=== PATIENT | female | born 1985 | race Caucasian/White ===

== ENCOUNTER 2024-07-22 20:02 | Emergency (ER) | payer MEDICAID ==
[~2024-07-22] VITALS: Ht 177.8 cm; Wt 91.9 kg
[2024-07-22 20:16] VITALS: TEMP 98.2
[2024-07-22 20:39] LABS: BILIRUBIN,URINE NEGATIVE (Neg); CLARITY,URINE CLEAR (Clear); COLOR,URINE YELLOW (Yellow); GLUCOSE, URINE NEGATIVE (Neg); KETONES,URINE NEGATIVE (Neg); LEUKOCYTE ESTERASE ,URINE NEGATIVE (Neg); NITRITES, URINE NEGATIVE (Neg); OCCULT BLOOD,URINE NEGATIVE (Neg); PH,URINE 7.5 (4.8-8.0); PROTEIN,URINE NEGATIVE (Neg); UROBILINOGEN,URINE 0.2 E.U/dL (0.2-1.0)
[2024-07-22 20:40] LABS: URINE HCG NEGATIVE (NEG)
[2024-07-22 20:43] LABS: UA COLLECTION TYPE CLN CATCH MIDSTREAM
[2024-07-22 20:51] LABS: BASOPHILS # (AUTO) 0.1 X10'3 (0-0.2); BASOPHILS % (AUTO) 0.6 % (0-1); EOSINOPHILS # (AUTO) 0.2 X10'3 (0-0.9); EOSINOPHILS % (AUTO) 1.6 % (0-6); HEMATOCRIT 41.7 % (35.0-45.0); HEMOGLOBIN 14.1 g/dl (12.0-16.0); LYMPHOCYTES # (AUTO) 0.6 X10'3 (1.1-4.8); LYMPHOCYTES % (AUTO) 5.4 % (21-51); MEAN CORPUSCULAR HEMOGLOBIN 31.5 PG (27.0-31.0); MEAN CORPUSCULAR HGB CONC 33.7 g/dL (33.0-36.5); MEAN CORPUSCULAR VOLUME 93.4 FL (78-98); MEAN PLATELET VOLUME 9.1 FL (7.4-10.4); MONOCYTES # (AUTO) 0.2 X10'3 (0-0.9); MONOCYTES % (AUTO) 1.8 % (2-12); NEUTROPHILS # (AUTO) 9.9 X10'3 (1.8-7.7); NEUTROPHILS % (AUTO) 90.6 % (42-75); PLATELET COUNT 219 X10'3 (140-440); RED BLOOD COUNT 4.47 X10'6 (4.20-5.60); RED CELL DISTRIBUTION WIDTH 12.8 % (11.5-14.5); WHITE BLOOD COUNT 10.9 X10'3 (4.5-11.0)
[2024-07-22 21:03] LABS: ALANINE AMINOTRANSFERASE 31 U/L (12-78); ALBUMIN 3.9 G/DL (3.4-5.0); ALBUMIN/GLOBULIN RATIO 1.1 (1.1-1.5); ALKALINE PHOSPHATASE 40 IU/L (46-116); ANION GAP 10 (8-16); ASPARTATE AMINO TRANSFERASE 21 U/L (10-37); BILIRUBIN,TOTAL 0.8 MG/DL (0.1-1.0); BLOOD UREA NITROGEN 15 MG/DL (7-18); BUN/CREATININE RATIO 18.5 (10.0-20.0); CALCIUM 8.4 MG/DL (8.5-10.1); CHLORIDE 105 MMOL/L (99-107); CREATININE 0.81 MG/DL (0.40-0.90); GLUCOSE 106 MG/DL (70-104); LIPASE 33 U/L (16-77); POTASSIUM 3.8 MMOL/L (3.5-5.1); SODIUM 138 MMOL/L (135-145); TOTAL CARBON DIOXIDE 23.3 MMOL/L (24-32); TOTAL PROTEIN 7.4 G/DL (6.4-8.2); eCRCL 101 ML/MIN; eGFR 79 ML/MIN
[2024-07-22 21:37] VITALS: BP 127/91; PULSE 89; RESP 16; O2SAT 95
== END 2024-07-22 23:24 | disposition left against medical advice (07) ==
LOC: ER 20:03
DX: R11.10 Vomiting, unspecified (principal); Z53.21 Procedure and treatment not carried out due to patient leaving prior to being seen by health care provider; Z20.822 Contact with and (suspected) exposure to COVID-19
CPT/HCPCS: 36415; 80053; 81003; 81025; 83690; 85025; 87811

== ENCOUNTER 2025-05-23 19:51 | Emergency (ER) | payer MEDICAID ==
[~2025-05-23] VITALS: Ht 177.8 cm; Wt 100.0 kg
[2025-05-23 19:53] VITALS: BP 130/92; PULSE 93; RESP 15; TEMP 97; O2SAT 97
--- NOTE | 2025-05-23 21:07 | Physician Documentation ---
History of Present Illness ~ Chief Complaint: Nose Pain Stated Complaint: NOSE PAIN Time Seen by MD: 21:05 HPI 39-year-old female presents stating she was struck by something breaking her nose earlier today.. denies loc. Day of Onset: May 23, 2025 Medication Reconciliation Allergies: Coded Allergies: No Known Allergies (Unverified , 05/23/25) Review of Systems All Other Systems at this time: Reviewed and Negative ROS As stated above in the HPI, otherwise all systems are reviewed and negative. Physical Exam Vital Signs: Temperature: 97.0, Source: Temporal, Heart Rate: 93, Respiratory Rate: 15, BP: 130/92, Pulse Oximetry: 97, Weight: 100.000 Physical Exam General: Alert, no apparent distress. HEENT: PERRL, EOMI, no injection, moist mucous membranes. No deformity notable Neck: Full range of motion. Respiratory: Lungs clear, no respiratory distress. Neurologic: Oriented x4. Psychiatric: Normal mood and affect. Skin: Normal color, warm and dry. No edema, no ecchymosis. Progress Results/Orders Results/Orders Vital Signs 05/23/25 19:53 Temp 97.0 Pulse 93 Resp 15 B/P (MAP) 130/92 Pulse Ox 97 Medical Decision Making Findings Patient eloped and called EMS to go to other hospital Departure Disposition: 07 LEFT AWOL/ELOPED Impression: Primary Impression: Contusion of nose Condition: Stable Referrals: NO PRIMARY CARE PROVIDER (PCP) Signature Scribe Signature: v Attestation: Scribed for Stefan Law Card [employer] by Stefan Ortega NP . 05/23/25 23:21 STEFAN LAW NP May 23, 2025 21:07
== END 2025-05-23 21:25 | disposition left against medical advice (07) ==
LOC: ER 19:52
DX: S00.33XA Contusion of nose, initial encounter (principal); W22.8XXA Striking against or struck by other objects, initial encounter; Y93.89 Activity, other specified; Y92.89 Other specified places as the place of occurrence of the external cause; Y99.8 Other external cause status
CPT/HCPCS: 99283

== ENCOUNTER 2025-05-28 21:32 | Emergency (ER) | payer MEDICAID ==
[~2025-05-28] VITALS: Ht 177.8 cm; Wt 100.0 kg
[2025-05-28 21:42] VITALS: BP 143/93; PULSE 80; RESP 16; O2SAT 96
[2025-05-28 22:35] VITALS: TEMP 98
[2025-05-28] MEDS ORDERED: ONDA-243 PO (22:50)
--- NOTE | 2025-05-28 22:51 | Physician Documentation ---
History of Present Illness ~ Chief Complaint: Headache Stated Complaint: NOSE PAIN Time Seen by MD: 22:03 OK to notify your PCP?: Yes Source: patient, RN/ HPI Patient is seen today with complaints of nausea and no vomiting and headache after she accidentally hit herself in the face will trying to get something off a top shelf. Patient denies any loss of consciousness and denies any severe headaches and has no new or other concern or complaint at this time. Medication Reconciliation Allergies: Coded Allergies: No Known Allergies (Unverified , 05/23/25) Review of Systems Constitutional: Denies: chills, fever, weakness Eyes: Denies: pain, blurred vision ENT: Denies: ear pain, nose pain, throat pain, mouth pain Respiratory: Denies: cough, shortness of breath Cardiovascular: Denies: chest pain, palpitations Gastrointestinal: Denies: abdominal pain, nausea, vomiting Genitourinary: Denies: burning, dysuria Female Genitalia: Denies: vaginal discharge, pelvic pain Neurological: Denies: headache, dizziness Musculoskeletal: Denies: pain, swelling Integumentary: Denies: rash, lesions Allergic/Immunologic: Denies: hives, itching Hematologic/Lymphatic: Denies: no symptoms reported Psychiatric: Denies: depression, anxiety Physical Exam Vital Signs: Temperature: 98.0, Source: Oral, Heart Rate: 80, Respiratory Rate: 16, BP: 143/93, Pulse Oximetry: 96, Weight: 100.000 Oxygen Flow Rate: 0 Physical Exam General: Awake and Alert, no acute distress. HEENT: Patient has no significant ecchymosis of her eyes or nose and no significant swelling and I do not appreciate any malalignment of her nasal bones. Conjunctiva pink, Sclera clear, Mucus Membranes moist. Neck: Supple without masses and tenderness. Resp: Unlabored. Lungs clear to auscultation bilaterally. Heart: Regular Rate and rhythm, normal S1 and S2 without murmur, rub or gallop. Abdomen: Soft and non tender no organomegaly Extremities: No cyanosis,clubbing or edema. Skin: Warm and Dry. Progress Results/Orders Results/Orders Vital Signs 05/28/25 05/28/25 21:42 22:35 Temp 98.0 98.0 Pulse 80 Resp 16 B/P (MAP) 143/93 Pulse Ox 96 O2 Flow Rate 0 Medical Decision Making Findings Patient is seen today with complaints of nausea and no vomiting and headache after she accidentally hit herself in the face will trying to get something off a top shelf. Patient denies any loss of consciousness and denies any severe headaches and has no new or other concern or complaint at this time. Patient was given a prescription for Zofran 4 mg ODT tablets to be taken as needed for nausea and as prescribed. Patient will continue Tylenol and ibuprofen as needed for headache and patient will rest and increase rest and fluids and will follow up with primary care in 3-5 days if no better as needed sooner. Return to ED with any worsening, concerning or changing symptoms. Departure Disposition: HOME / SELF CARE / HOMELESS Impression: Primary Impression: Headache Qualified Codes: R51.9 - Headache, unspecified Additional Impressions: Contusion of nose Qualified Codes: S00.33XD - Contusion of nose, subsequent encounter Concussion without loss of consciousness Qualified Codes: S06.0X0D - Concussion without loss of consciousness, subsequent encounter Condition: Improved Discharge Instructions: Headache Additional Instructions: Patient was given a prescription for Zofran 4 mg ODT tablets to be taken as n eeded for nausea and as prescribed. Patient will continue Tylenol and ibuprofen as needed for headache and patient will rest and increase rest and fluids and will follow up with primary care in 3-5 days if no better as needed sooner. Return to ED with any worsening, concerning or changing symptoms. Referrals: NO PRIMARY CARE PROVIDER (PCP) Prescriptions ONDANSETRON ODT 4mg tablet (ONDANSETRON ODT) 4 Mg Tab.rapdis 4 MG PO BID for 7 Days, #14 TAB Prov: PARMINDER CUI 05/28/25 Signature Scribe Signature: No scribe Attestation: No scribe PARMINDER CUI May 28, 2025 22:51
== END 2025-05-28 23:22 | disposition home or self-care (01) ==
LOC: ER 21:33
DX: S00.33XA Contusion of nose, initial encounter (principal); S06.0X0A Concussion without loss of consciousness, initial encounter; X58.XXXA Exposure to other specified factors, initial encounter; Y93.89 Activity, other specified; Y92.89 Other specified places as the place of occurrence of the external cause; Y99.8 Other external cause status
CPT/HCPCS: 99284